=== PATIENT | female | born 1985 | race Caucasian/White ===

== ENCOUNTER 2017-07-23 01:56 | Emergency (ER) | payer MEDICAID ==
[~2017-07-23] VITALS: Ht 170.2 cm; Wt 51.7 kg
[2017-07-23 02:01] VITALS: Ht 170.2 cm; Wt 51.7 kg
[2017-07-23 03:06] VITALS: BP 112/67
== END 2017-07-23 03:06 | disposition home or self-care (01) ==
LOC: ED 01:56
DX: L02.415 Cutaneous abscess of right lower limb (principal)

== ENCOUNTER 2019-06-17 22:51 | Emergency (ER) | payer MEDICAID ==
[~2019-06-17] VITALS: Ht 152.4 cm; Wt 50.8 kg
[2019-06-17 23:04] VITALS: BP 111/72; Ht 152.4 cm; Wt 50.8 kg
== END 2019-06-18 00:43 | disposition home or self-care (01) ==
LOC: ED 22:51
DX: J06.9 Acute upper respiratory infection, unspecified (principal); R51 Headache
CPT/HCPCS: J1100

== ENCOUNTER 2020-09-05 15:36 | Emergency (ER) | payer MEDICAID ==
[~2020-09-05] VITALS: Ht 154.9 cm; Wt 50.3 kg
[2020-09-05 16:14] VITALS: Ht 154.9 cm; Wt 50.3 kg
[2020-09-05 17:07] LABS: BASOPHIL % 1.1 % (0.2-1.3); PLATELET COUNT 317 x10^3mcL (179-408); RED CELL DISTRIBUTION WIDTH 11.9 % (12.3-17.7)
[2020-09-05 17:14] LABS: CALCIUM 8.3 mg/dL (8.5-10.1); CARBON DIOXIDE 24.6 mmol/L (21-32); CHLORIDE SERUM 104 mmol/L (98-107); CREATININE SERUM 0.6 mg/dL (0.6-1.0); GFR1 > 60 mL/min; GLUCOSE SERUM 84 mg/dL (74-106); POTASSIUM SERUM 4.2 mmol/L (3.5-5.1); SODIUM SERUM 137 mmol/L (136-145)
[2020-09-05 17:29] LABS: ALBUMIN 3.4 g/dL (3.4-5.0); ALKALINE PHOSPHATASE 52 U/L (46-116); ALT/SGPT 19 U/L (14-59); AST/SGOT 15 U/L (15-37); BILIRUBIN TOTAL 0.3 mg/dL (0.20-1.00); T4(THYROXINE) 7.2 ug/dL (4.7-13.3); TOTAL PROTEIN, SERUM 6.9 g/dL (6.4-8.2)
[2020-09-05] MEDS ORDERED: NAPROXEN375 MG PO (18:34)
[2020-09-05 18:54] VITALS: BP 101/68
== END 2020-09-05 18:54 | disposition home or self-care (01) ==
LOC: ED 15:36
PROVIDERS: Emergency Medicine
DX: R51.9 Headache, unspecified (principal); R42 Dizziness and giddiness